=== PATIENT | female | born 1965 | race Caucasian/White ===

== ENCOUNTER 2017-07-08 19:30 | Emergency (ER) | payer OTHER ==
[~2017-07-08] VITALS: Ht 165.1 cm; Wt 103.9 kg
[~2017-07-08 19:30] MED LIST: FENOFIBRATE54 M1 PO; IBUPROFEN800 MG PO; MOTRIN800 MG PO; NAPROSYN500 MG PO; PEN-VEE K,VEET500 MG PO; PREDNISONE50 MG PO; ULTRAM50 MG PO; no home meds
[2017-07-08] MEDS ORDERED: VALIUM5 MG PO (21:04)
[2017-07-08] MEDS ORDERED: MOTRIN800 MG PO (21:04)
[2017-07-08] MEDS ORDERED: NORCO 7.5/321 TABLET PO (21:04)
[2017-07-08 21:17] VITALS: BP 149/87
== END 2017-07-08 21:17 | disposition home or self-care (01) ==
LOC: EXP 19:30 → EME 19:30 → EXP 21:17
DX: S86.811A Strain of other muscle(s) and tendon(s) at lower leg level, right leg, initial encounter (principal); M54.31 Sciatica, right side
CPT/HCPCS: 99281; 99283